=== PATIENT | female | born 2000 | race Two or more races ===

== ENCOUNTER 2022-03-16 16:30 | Inpatient (IN) | payer MEDICAID, OTHER ==
[~2022-03-16] VITALS: Ht 160 cm; Wt 73.1 kg
[2022-03-16 17:22] LABS: COVID AG,FIA SOURCE NASOPHARYNGEAL
[2022-03-16 17:30] LABS: BASOPHILS % (AUTO) 0.2 % (0.0-2.0); EOSINOPHILS % (AUTO) 0.2 % (1.0-6.0); LYMPHOCYTES # (AUTO) 0.9 K/uL (1.0-4.8); MONOCYTES # (AUTO) 0.3 K/uL (0.1-1.0); MONOCYTES % (AUTO) 4.5 % (2.0-9.0)
[2022-03-16 17:33] LABS: ANION GAP 8 mmol/L (8-16); CALCIUM, TOTAL 9.5 mg/dL (8.8-10.5); CARBON DIOXIDE 27 mmol/L (22-29); CHLORIDE 102 mmol/L (98-107); CREATININE 0.64 mg/dL (0.60-1.30); GLOMERULAR FILTR. RATE CALC > 60 mL/min (>60); GLUCOSE,RANDOM 107 mg/dL (70-110); HEMATOCRIT 40.2 % (36-46); HEMOGLOBIN 14.1 g/dL (12.0-16.0); LYMPHOCYTES % (AUTO) 12.1 % (22.0-44.0); MEAN CORPUSCULAR HEMOGLOBIN 30.2 pg (26.0-34.0); MEAN CORPUSCULAR HGB CONC 35.1 G/dL (31.0-37.0); MEAN CORPUSCULAR VOLUME 86 fL (80-100); PLATELET COUNT (AUTO) 280 K/uL (150-450); POTASSIUM 3.6 mmol/L (3.5-5.1); RED BLOOD CELL COUNT(AUTO) 4.67 MIL/uL (4.00-5.20); RED CELL DISTRIBUTION WIDTH 13.3 % (11.5-14.5); SODIUM SERUM 137 mmol/L (136-145); UREA NITROGEN, BLOOD 5 mg/dL (7-18)
[2022-03-16 17:39] LABS: SALICYLATE 0.4 mg/dL (2.8-20.0)
[2022-03-16 17:40] LABS: ACETAMINOPHEN < 2 mcg/mL (10-30); ALANINE AMINOTRANSFERASE 12 U/L (12-78); ALBUMIN 4.6 g/dL (3.4-5.0); ALKALINE PHOSPHATASE 75 U/L (46-116); ASPARTATE AMINOTRANSFERASE 15 U/L (15-37); BILIRUBIN,TOTAL 0.8 mg/dL (0.1-1.0); TOTAL PROTEIN, SERUM 7.9 g/dL (6.4-8.2)
[2022-03-16] MEDS ORDERED: LORazepam 1 MG TABLET PO ONE (18:00)
[2022-03-16] MEDS ORDERED: HALOPERIDOL 5 MG TABLET PO PRN (18:45)
[2022-03-16 18:50] LABS: HCG,QUANTITATIVE < 1 mIU/mL (0-6)
[2022-03-16] MEDS: ZOLPIDEM TARTRATE 10 MG TABLET PO PRN (23:25)
[2022-03-16] MEDS: LORazepam 2 MG TABLET PO PRN (23:25)
[2022-03-16 23:51] VITALS: BP 139/84
[2022-03-16 23:56] VITALS: BP 139/84
[2022-03-17 08:34] VITALS: BP 122/63
[2022-03-17] MEDS: FLUoxetine HCL 20 MG CAPSULE PO SCH (12:14)
[2022-03-17 16:15] VITALS: BP 110/70
[2022-03-17 21:39] LABS: APPEARANCE,URINE HAZY (CLEAR); BILIRUBIN,URINE NEGATIVE (NEGATIVE); GLUCOSE, URINE (UA) NEGATIVE (NEGATIVE); KETONES,URINE NEGATIVE (NEGATIVE); LEUKOCYTE ESTERASE ,URINE SMALL (NEGATIVE); NITRATE,URINE NEGATIVE (NEGATIVE); OCCULT BLOOD,URINE NEGATIVE (NEGATIVE); PH,URINE 6.5 (5.0-8.0); PROTEIN,URINE NEGATIVE (NEGATIVE); SPECIFIC GRAVITIY, URINE 1.008 (1.003-1.030); UROBILINOGEN,URINE <=1.0 mg/dL (<=1.0)
[2022-03-17 21:46] LABS: AMPHET/METH SCREEN,URINE NEGATIVE (NEGATIVE); BARBITURATE SCREEN, URINE NEGATIVE (NEGATIVE); BENZODIAZEPINES SCREEN,URINE NEGATIVE (NEGATIVE); CANNABINOID SCREEN,URINE NEGATIVE (NEGATIVE); COCAINE SCREEN,URINE NEGATIVE (NEGATIVE); METHADONE SCREEN, URINE NEGATIVE (NEGATIVE); OPIATE SCREEN,URINE NEGATIVE (NEGATIVE); PHENCYCLIDINE SCREEN,URINE NEGATIVE (NEGATIVE)
[2022-03-17 21:48] LABS: BACTERIA,URINE Few /HPF (None Seen); RBC,URINE 0-2 /HPF (0-2); SQUAMOUS EPITHELIAL CELL,UR Few /LPF (None Seen)
[2022-03-17] MEDS: ZOLPIDEM TARTRATE 10 MG TABLET PO PRN (23:07)
[2022-03-17] MEDS: LORazepam 2 MG TABLET PO PRN (23:07)
[2022-03-18 08:46] VITALS: BP 104/77
[2022-03-18] MEDS: FLUoxetine HCL 20 MG CAPSULE PO SCH (10:13)
[2022-03-18 16:06] VITALS: BP 131/83
[2022-03-18 21:25] VITALS: BP 125/84
[2022-03-18] MEDS: ZOLPIDEM TARTRATE 10 MG TABLET PO PRN (21:29)
[2022-03-19] MEDS: FLUoxetine HCL 20 MG CAPSULE PO SCH (08:12)
[2022-03-19 08:36] VITALS: BP 122/74
[2022-03-19] MEDS ORDERED: CloNIDine HCL 0.1 MG TABLET PO PRN (14:45)
[2022-03-19] MEDS ORDERED: LOPERAMIDE HCL 2 MG CAPSULE PO PRN (14:45)
[2022-03-19] MEDS ORDERED: PETROLATUM,WHITE 28 GM JELLY TP PRN (14:45)
[2022-03-19] MEDS ORDERED: ALBUTEROL SULFATE HFA 90 MCG/PUFF 8 GM INHALER IH PRN (14:45)
[2022-03-19] MEDS ORDERED: ONDANSETRON HCL 4 MG TABLET PO PRN (14:45)
[2022-03-19] MEDS ORDERED: DOCUSATE SODIUM 100 MG CAPSULE PO PRN (14:45)
[2022-03-19] MEDS ORDERED: GuaiFENesin/D-METHORPHAN [SUGAR-FREE] 200-20MG/10 ML SYRUP UDCUP PO PRN (14:45)
[2022-03-19] MEDS ORDERED: MAGNESIUM HYDROXIDE SUSPENSION 30 ML UDCUP PO PRN (14:45)
[2022-03-19] MEDS ORDERED: ACETAMINOPHEN 325 MG TABLET PO PRN (14:45)
[2022-03-19] MEDS ORDERED: IBUPROFEN 400 MG TABLET PO PRN (14:45)
[2022-03-19] MEDS ORDERED: MAG HYDROX/AL HYDROX/SIMETH ES 30 ML SUSPENSION UDCUP PO PRN (14:45)
[2022-03-19] MEDS ORDERED: NICOTINE 14 MG/24 HOUR PATCH TD PRN (14:45)
[2022-03-19] MEDS ORDERED: CEPHALEXIN MONOHYDRATE 250 MG CAPSULE PO SCH (16:00)
[2022-03-19 16:13] VITALS: BP 126/83
[2022-03-19] MEDS ORDERED: FLUO20CA36 PO (17:04)
[2022-03-19] MEDS ORDERED: CEPH-556 PO (17:42)
== END 2022-03-19 18:10 | disposition home or self-care (01) | DRG 751 ==
LOC: EMS 16:33 → 3EI 21:01
PROVIDERS: ADMIT Psychiatry & Neurology Child & Adolescent Psychiatry; ATTEND Psychiatry & Neurology Child & Adolescent Psychiatry
DX: F33.2 Major depressive disorder, recurrent severe without psychotic features (principal); R45.851 Suicidal ideations; Z20.822 Contact with and (suspected) exposure to COVID-19; N39.0 Urinary tract infection, site not specified
CPT/HCPCS: 80053; 80307; 81001; 84702; 85025; 99285; G0480; G0481